=== PATIENT | male | born 2000 | race Caucasian/White ===

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

== ENCOUNTER 2022-01-16 17:19 | Emergency (ER) | payer OTHER ==
[~2022-01-16] VITALS: Wt 79.4 kg
== END 2022-01-16 19:48 | disposition home or self-care (01) ==
LOC: ED 17:19
DX: S01.01XA Laceration without foreign body of scalp, initial encounter (principal); W18.39XA Other fall on same level, initial encounter; Y93.89 Activity, other specified; Y92.89 Other specified places as the place of occurrence of the external cause; Y99.8 Other external cause status

== ENCOUNTER 2023-10-13 22:02 | Emergency (ER) | payer BC ==
[~2023-10-13] VITALS: Ht 182.8 cm; Wt 90.7 kg
[2023-10-13] MEDS ORDERED: ACETAMINOPHEN 325 MG TAB PO ONE (23:15)
[2023-10-13] MEDS ORDERED: SODIUM CHLORIDE 0.9% 1,000 ML IV ONE (23:15)
[2023-10-13 23:41] LABS: BASO % 0.4 % (0.0-1.0); EOS % 0.3 % (1.0-4.0); HEMATOCRIT 43.1 % (42.0-52.0); LYMPH % 9.4 % (27.0-41.0); MEAN CELL VOLUME 84.8 fl (80.0-94.0); MEAN CORPUSCULAR HGB 28.7 pg (27.0-31.0); MEAN CORPUSCULAR HGB CONC 33.9 g/dl (33.0-37.0); MEAN PLATELET VOLUME 8.2 fl (9.6-12.3); MONO # 0.7 10*3/uL (0.1-1.0); MONO % 6.7 % (3.0-9.0); PLATELET COUNT AUTOMATED 213 10*3/uL (130-400); RED BLOOD COUNT 5.08 10*6/uL (4.50-5.90); RED CELL DISTRI WIDTH 12.2 % (0-14.5); WHITE BLOOD COUNT 10.8 10*3/uL (4.8-10.8)
[2023-10-14 00:06] LABS: ALKALINE PHOSPHATASE 63 U/L (46-116); BUN 11 mg/dl (9-23); CHLORIDE 106 mmol/L (98-107); POTASSIUM 3.3 mmol/L (3.4-5.1); SGPT/ALT 20 U/L (5-49); TOTAL PROTEIN 7.1 gm/dL (6.0-8.0)
[2023-10-14] MEDS ORDERED: Ketorolac Tromethamine 30 MG/ML VIAL IM ONE (02:15)
[2023-10-14] MEDS ORDERED: Acetaminophen/Hydrocodone 5 MG/325 MG TABLET PO ONE (02:20)
[2023-10-14] MEDS ORDERED: Metoclopramide Hydrochloride 10 MG/2 ML AMP IV ONE (03:35)
[2023-10-14] MEDS ORDERED: SODIUM CHLORIDE 0.9% 1,000 ML IV ONE (03:35)
[2023-10-14] MEDS ORDERED: REGLAN10 M1 PO (13:41)
[2023-10-14] MEDS ORDERED: IBU800 M2 PO (13:41)
[2023-10-14] MEDS ORDERED: VIBRAMYCIN100 MG PO (13:41)
== END 2023-10-14 05:01 | disposition home or self-care (01) ==
LOC: ED 22:02
PROVIDERS: Emergency Medicine
DX: G43.909 Migraine, unspecified, not intractable, without status migrainosus (principal); Z20.822 Contact with and (suspected) exposure to COVID-19; R50.9 Fever, unspecified; B34.9 Viral infection, unspecified; R53.1 Weakness; R20.0 Anesthesia of skin; Z53.29 Procedure and treatment not carried out because of patient's decision for other reasons; Z98.890 Other specified postprocedural states

== ENCOUNTER 2023-10-14 12:15 | Emergency (ER) | payer BC ==
[~2023-10-14] VITALS: Ht 187.9 cm; Wt 81.6 kg
[2023-10-14] MEDS ORDERED: Metoclopramide Hydrochloride 10 MG/2 ML AMP IV ONE (12:40)
[2023-10-14] MEDS ORDERED: diphenhydrAMINE hydrochloride 50 MG/ML VIAL IV ONE (12:40)
[2023-10-14] MEDS ORDERED: Ketorolac Tromethamine 15 MG/ML VIAL IV ONE (12:40)
[2023-10-14] MEDS ORDERED: SODIUM CHLORIDE 0.9% 1,000 ML IV ONE (12:40)
[2023-10-14] MEDS ORDERED: IBU800 M2 PO (13:41)
[2023-10-14] MEDS ORDERED: REGLAN10 M1 PO (13:41)
[2023-10-14] MEDS ORDERED: VIBRAMYCIN100 MG PO (13:41)
[2023-10-14 13:49] LABS: BASO % 0.2 % (0.0-1.0); EOS # 0.1 10*3/uL (0.0-0.4); EOS % 1.2 % (1.0-4.0); HEMATOCRIT 41.3 % (42.0-52.0); LYMPH # 1.2 10*3/uL (1.3-4.4); LYMPH % 15.3 % (27.0-41.0); MEAN CELL VOLUME 85.5 fl (80.0-94.0); MEAN CORPUSCULAR HGB 29.6 pg (27.0-31.0); MEAN CORPUSCULAR HGB CONC 34.6 g/dl (33.0-37.0); MEAN PLATELET VOLUME 8.8 fl (9.6-12.3); MONO # 1.1 10*3/uL (0.1-1.0); MONO % 13.4 % (3.0-9.0); NEUT # 5.6 10*3/uL (2.3-7.9); NEUT % 69.7 % (47.0-73.0); PLATELET COUNT AUTOMATED 180 10*3/uL (130-400); RED BLOOD COUNT 4.83 10*6/uL (4.50-5.90); RED CELL DISTRI WIDTH 12.5 % (0-14.5)
[2023-10-14 14:13] LABS: ALKALINE PHOSPHATASE 58 U/L (46-116); BUN 8 mg/dl (9-23); CHLORIDE 109 mmol/L (98-107); POTASSIUM 3.7 mmol/L (3.4-5.1); SGPT/ALT 17 U/L (5-49); TOTAL PROTEIN 6.8 gm/dL (6.0-8.0)
== END 2023-10-14 14:02 | disposition home or self-care (01) ==
LOC: ED 12:15
PROVIDERS: Emergency Medicine
DX: R51.9 Headache, unspecified (principal); R50.9 Fever, unspecified; M54.2 Cervicalgia; Z98.890 Other specified postprocedural states

== ENCOUNTER 2024-01-04 10:13 | Emergency (ER) | payer BC ==
[~2024-01-04] VITALS: Wt 81.6 kg
[~2024-01-04 10:13] MED LIST changes: +IBU800 M2 PO; +REGLAN10 M1 PO; +VIBRAMYCIN100 MG PO
[2024-01-04] MEDS ORDERED: Tdap Vaccine 0.5 ML SYR (Adult Vaccine) IM ONE (10:50)
[2024-01-04] MEDS ORDERED: MELOXICAM15 MG PO (12:41)
[2024-01-04] MEDS ORDERED: CEPHALEXIN500 M1 PO (12:41)
== END 2024-01-04 12:53 | disposition home or self-care (01) ==
LOC: ED 10:13
DX: L03.011 Cellulitis of right finger (principal); Z98.890 Other specified postprocedural states